=== PATIENT | male | born 1975 | race Caucasian/White ===

== ENCOUNTER 2017-05-08 09:04 | Emergency (ER) | payer BC ==
[~2017-05-08] VITALS: Ht 180.3 cm; Wt 90.9 kg
[2017-05-08 09:08] VITALS: TEMP 97.7
[2017-05-08 09:51] LABS: BASO # 0.1 (0.0-0.2); BASO % 1.1 % (0.0-2.0); EOS # 0.1 (0.0-0.7); EOS % 1.7 % (0-4.0); GRAN # 3.4 (1.4-6.5); GRAN % 54.1 % (42.2-75.2); HEMATOCRIT 49.5 % (42.0-52.0); LYMPH # 2.2 (1.2-3.4); MEAN CELL VOLUME 87 fl (80.0-100.0); MEAN CORPUSCULAR HEMOGLOBIN 30 pg (27.0-31.0); MEAN CORPUSCULAR HGB CONC 34 g/dl (33.0-37.0); MEAN PLATELET VOLUME 10.8 fl (7.4-10.4); MONO # 0.5 (0.1-0.6); MONO % 7.8 % (1.7-9.3); PLATELET COUNT 239 K/mm3 (130-400); RED BLOOD COUNT 5.71 M/mm3 (4.20-5.60)
[2017-05-08 09:56] LABS: ALANINE AMINOTRANSFERASE 45 U/L (21-72); ALBUMIN 4.8 gm/dL (3.5-5.0); ALKALINE PHOSPHATASE 62 U/L (50-136); ANION GAP 11 mmol/L (7-16); AST,SGOT 23 U/L (15-37); BILIRUBIN,TOTAL 0.6 mg/dL (0.0-1.0); BLOOD UREA NITROGEN 21 mg/dL (9-20); CALCIUM 9.6 mg/dL (8.4-10.2); CARBON DIOXIDE 28 mmol/L (22-30); CHLORIDE 102 mmol/L (98-107); CREATININE, serum 0.93 mg/dL (0.66-1.25); GLUCOSE 99 mg/dL (74-106); POTASSIUM 4.4 mmol/L (3.4-5.0); SODIUM 141 mmol/L (137-145); TOTAL PROTEIN 8.1 gm/dL (6.4-8.2)
[2017-05-08 10:07] LABS: PROTHROMBIN TIME 11.4 SECONDS (9.7-12.8)
[2017-05-08 10:08] LABS: TROPONIN-I < 0.012 ng/mL (0.000-0.034)
[2017-05-08 10:30] LABS: D-DIMER < 200.00 ng/mLDDu (200-230)
[2017-05-08] MEDS ORDERED: NITROSTAT0.4 MG/TAB SL (13:02)
[2017-05-08] MEDS ORDERED: TOPROL XL 50MG50 MG PO (13:02)
[2017-05-08] MEDS ORDERED: ASPIRIN 81M81 MG/TA2 PO (13:02)
[2017-05-08 14:06] VITALS: BP 132/97; PULSE 54
== END 2017-05-08 14:08 | disposition home or self-care (01) ==
LOC: COL.ER 09:04
PROVIDERS: Emergency Medicine
DX: I20.9 Angina pectoris, unspecified (principal); I10 Essential (primary) hypertension; E78.5 Hyperlipidemia, unspecified; Z90.89 Acquired absence of other organs

== ENCOUNTER → 2017-05-09 | Outpatient (CLI) | payer BC ==
[~2017-05-09] MED LIST: ASPIRIN 81M81 MG/TA2 PO; NITROSTAT0.4 MG/TAB SL; TOPROL XL 50MG50 MG PO
== END ==
LOC: COL.VAS 10:48
DX: I08.8 Other rheumatic multiple valve diseases (principal); I10 Essential (primary) hypertension